=== PATIENT | female | born 1955 | race Caucasian/White ===

== ENCOUNTER 2017-07-06 18:32 | Inpatient (IN) ==
[2017-07-06 19:26] LABS: Apearance,Urine Slightly Hazy (Clear); Bilirubin,Urine Negative (Negative); Blood, Urine Negative (Negative); Glucose,Urine (UA) Negative (Negative); Ketones,Urine 5 mg/dL (Negative); Mucus,Urine Occasional /LPF (Occasional); Nitrite,Urine Negative (Negative); Protein,Urine Negative; RBC,Urine 2 /HPF (0-4); Urine Color Yellow (Yellow); Urine Specific Gravity 1.008 (1.001-1.035); Urine Urobilinogen < 2.0 EU/DL (0.2-1.0); WBC,Urine <1 /HPF (0-6)
[2017-07-06] MEDS ORDERED: SODIUM CHLORIDE 0.9% 500 ML IV STA (19:29)
[2017-07-06] MEDS ORDERED: ALUM/MAG/SIMETH/LIDO VISC 1:1 30 ML BOTTLE PO STA (19:29)
[2017-07-06] MEDS ORDERED: ONDANSETRON 4 MG/2 ML VIAL IV STA (19:29)
[2017-07-06] MEDS ORDERED: ONDANSETRON 4 MG/2 ML VIAL ONE (20:01)
[2017-07-06] MEDS ORDERED: ALUM/MAG/SIMETH/LIDO VISC 1:1 30 ML BOTTLE PO ONE (20:01)
[2017-07-06 20:15] LABS: Alanine Aminotransferase 21 U/L (13-56); Albumin 3.5 G/DL (3.4-5.0); Alkaline Phosphatase 104 U/L (45-117); Amylase 35 U/L (25-115); Aspartate Amino Transferase 16 U/L (0-37); Blood Urea Nitrogen 5 MG/DL (7-18); Calcium 8.5 MG/DL (8.5-10.1); Glucose 130 MG/DL (74-106); Osmolality,Calculated 232.8 MOS/KG (273-304); Total Protein 6.5 G/DL (6.4-8.3); Troponin I Only < 0.015 NG/ML (0.00-0.045)
[2017-07-06 20:18] LABS: Basophils % 0.1 % (0.0-0.8); Eosinophils # 0.1 10*3/uL (0.0-0.87); Eosinophils % 0.6 % (0.00-10.9); Hematocrit 32.8 VOL% (35.7-47.0); Hemoglobin 12.5 GM/DL (12.0-16.0); Immature Granulocytes % 0.8 %; Immature Granulocytes Absolute 0.11 #; Lymphocytes # 0.9 10*3/uL (1.4-4.0); Lymphocytes % 6.4 % (21.3-54.2); Mean Corpuscular HGB Conc 38.1 GM/DL (32-36); Mean Corpuscular Hemoglobin 31 PG (27-34); Mean Corpuscular Volume 81.2 FL (87-102); Mean Platelet Volume 8.7 FL (9.6-12.0); Monocytes # 1.4 10*3/uL (0.11-0.8); Monocytes % 9.8 % (1.7-12.7); Neutrophils # 11.8 10*3/uL (1.4-7.4); Neutrophils % 82.3 % (38.7-73.9); Platelet Count 296 T/CUMM (130-400); Red Blood Count 4.04 MC/CUMM (3.8-5.5); Red Cell Distribution Width 11.8 % (9.3-17.3); White Blood Count 14.3 T/CUMM (4-12)
[2017-07-06 20:19] LABS: Sodium 116 MMOL/L (136-145)
[2017-07-06 20:22] LABS: Lactic Acid 1.8 MMOL/L (0.4-2.0)
[2017-07-06] MEDS ORDERED: PANTOPRAZOLE 40 MG VIAL IV ONE ×2 (22:04→22:35)
[2017-07-07] MEDS ORDERED: GLUCAGON 1 MG VIAL IM PRN (00:14)
[2017-07-07] MEDS ORDERED: hydrALAZINE 20 MG/1 ML VIAL IV PRN (00:14)
[2017-07-07] MEDS ORDERED: DEXTROSE 50% 25 GM/50 ML VIAL IV PRN (00:14)
[2017-07-07] MEDS ORDERED: MORPHINE 4 MG/1 ML VIAL IV PRN (00:14)
[2017-07-07] MEDS: metroNIDAZOLE INJ 500 MG in PREMIX 1 EACH IV SCH ×2 (00:51→11:55)
[2017-07-07] MEDS: SODIUM CHLORIDE 0.9% 1,000 ML IV SCH ×4 (00:52→22:33)
[2017-07-07 01:58] LABS: Hemoglobin A1C 5.1 % (4.2-6.3)
[2017-07-07 02:07] LABS: Calcium 8.4 MG/DL (8.5-10.1); Osmolality,Calculated 238.2 MOS/KG (273-304); Potassium 3.8 MMOL/L (3.5-5.1)
[2017-07-07 02:12] LABS: Lithium 0.3 MMOL/L (0.6-1.2)
[2017-07-07] MEDS: CIPROFLOXACIN INJ 400 MG in PREMIX 1 EACH IV SCH ×2 (02:55→12:55)
[2017-07-07] MEDS: ONDANSETRON 4 MG/2 ML VIAL IV PRN (04:32)
[2017-07-07] MEDS: INSULIN REGULAR 100 UNIT/ML SUBCUT SCH ×4 (07:30→21:57)
[2017-07-07] MEDS: PANTOPRAZOLE 40 MG VIAL IV SCH (10:30)
[2017-07-07] MEDS: ENOXAPARIN 40 MG/0.4 ML SYRINGE SUBCUT SCH (10:31)
[2017-07-07] MEDS: TAMSULOSIN 0.4 MG CAPSULE PO SCH (14:15)
[2017-07-07 17:04] LABS: Calcium 8.2 MG/DL (8.5-10.1); Osmolality,Calculated 239.2 MOS/KG (273-304); Potassium 3.3 MMOL/L (3.5-5.1)
[2017-07-08] MEDS: metroNIDAZOLE INJ 500 MG in PREMIX 1 EACH IV SCH ×3 (00:18→23:37)
[2017-07-08] MEDS: CIPROFLOXACIN INJ 400 MG in PREMIX 1 EACH IV SCH ×2 (02:35→13:58)
[2017-07-08 07:08] LABS: Basophils % 0.1 % (0.0-0.8); Eosinophils % 0.3 % (0.00-10.9); Hemoglobin 11.3 GM/DL (12.0-16.0); Immature Granulocytes % 0.6 %; Immature Granulocytes Absolute 0.06 #; Lymphocytes # 0.7 10*3/uL (1.4-4.0); Lymphocytes % 6.1 % (21.3-54.2); Mean Corpuscular HGB Conc 37.7 GM/DL (32-36); Mean Corpuscular Hemoglobin 31 PG (27-34); Mean Corpuscular Volume 82.2 FL (87-102); Mean Platelet Volume 8.9 FL (9.6-12.0); Monocytes % 9.4 % (1.7-12.7); Neutrophils # 9.1 10*3/uL (1.4-7.4); Neutrophils % 83.5 % (38.7-73.9); Platelet Count 222 T/CUMM (130-400); Red Blood Count 3.65 MC/CUMM (3.8-5.5); Red Cell Distribution Width 11.8 % (9.3-17.3); White Blood Count 10.9 T/CUMM (4-12)
[2017-07-08 07:20] LABS: Hypochromasia Slight
[2017-07-08 07:24] LABS: Calcium 8.1 MG/DL (8.5-10.1); Osmolality,Calculated 240.1 MOS/KG (273-304)
[2017-07-08] MEDS: INSULIN REGULAR 100 UNIT/ML SUBCUT SCH ×4 (08:00→21:28)
[2017-07-08] MEDS: ENOXAPARIN 40 MG/0.4 ML SYRINGE SUBCUT SCH (11:15)
[2017-07-08] MEDS: PANTOPRAZOLE 40 MG VIAL IV SCH (11:15)
[2017-07-08] MEDS: TAMSULOSIN 0.4 MG CAPSULE PO SCH (11:15)
[2017-07-08] MEDS: SODIUM CHLORIDE 0.9% 1,000 ML IV SCH ×4 (11:50→23:26)
[2017-07-08] MEDS ORDERED: POTASSIUM CHLORIDE 20 MEQ TABLET PO SCH (12:00)
[2017-07-08] MEDS: POLYETHYLENE GLYCOL POWDER 17 GM PACK PO SCH ×2 (12:38→21:28)
[2017-07-08] MEDS: LACTULOSE 20 GM/30 ML UDCUP PO SCH ×2 (12:38→21:28)
[2017-07-08] MEDS: DOCUSATE SODIUM 100 MG CAPSULE PO SCH ×2 (12:39→21:27)
[2017-07-08] MEDS ORDERED: ALUMINUM/MAGNES/SIMETH MAX STR 30 ML UDCUP PO PRN (16:25)
[2017-07-08 19:58] LABS: Calcium 7.8 MG/DL (8.5-10.1); Osmolality,Calculated 229.9 MOS/KG (273-304); Potassium 2.8 MMOL/L (3.5-5.1)
[2017-07-08] MEDS ORDERED: POTASSIUM CHLORIDE 20 MEQ TABLET PO ONE (20:29)
[2017-07-08] MEDS: DULoxetine 30 MG CAPSULE PO SCH (21:27)
[2017-07-08] MEDS: LITHIUM ER 300 MG TABLET PO SCH (21:27)
[2017-07-08] MEDS: GABAPENTIN 300 MG CAPSULE PO SCH (21:28)
[2017-07-08] MEDS: ONDANSETRON 4 MG/2 ML VIAL IV PRN (23:48)
[2017-07-09] MEDS: CIPROFLOXACIN INJ 400 MG in PREMIX 1 EACH IV SCH (00:52)
[2017-07-09] MEDS: LEVOTHYROXINE 100 MCG TABLET PO SCH (06:30)
[2017-07-09 07:05] LABS: Basophils % 0.1 % (0.0-0.8); Eosinophils # 0.1 10*3/uL (0.0-0.87); Eosinophils % 0.6 % (0.00-10.9); Hematocrit 30.5 VOL% (35.7-47.0); Immature Granulocytes % 0.9 %; Immature Granulocytes Absolute 0.09 #; Lymphocytes % 9.9 % (21.3-54.2); Mean Corpuscular HGB Conc 38.7 GM/DL (32-36); Mean Corpuscular Hemoglobin 31 PG (27-34); Mean Corpuscular Volume 80.5 FL (87-102); Mean Platelet Volume 8.6 FL (9.6-12.0); Monocytes # 1.1 10*3/uL (0.11-0.8); NRBC # 0.03 10*3/uL; Neutrophils # 7.8 10*3/uL (1.4-7.4); Neutrophils % 77.5 % (38.7-73.9); Platelet Count 241 T/CUMM (130-400); Red Blood Count 3.79 MC/CUMM (3.8-5.5); Red Cell Distribution Width 11.7 % (9.3-17.3); White Blood Count 10.1 T/CUMM (4-12)
[2017-07-09 07:07] LABS: Hemoglobin 11.8 GM/DL (12.0-16.0)
[2017-07-09 07:09] LABS: Blood Urea Nitrogen < 1 MG/DL (7-18); Calcium 8.3 MG/DL (8.5-10.1); Glucose 114 MG/DL (74-106); Osmolality,Calculated 229.3 MOS/KG (273-304); Potassium 3.2 MMOL/L (3.5-5.1)
[2017-07-09] MEDS: INSULIN REGULAR 100 UNIT/ML SUBCUT SCH ×4 (07:30→21:36)
[2017-07-09 08:15] LABS: Sodium 115 MMOL/L (136-145)
[2017-07-09] MEDS ORDERED: MAGNESIUM OXIDE 400 MG TABLET PO SCH (09:00)
[2017-07-09] MEDS: POTASSIUM CHLORIDE 20 MEQ/15 ML UDCUP PO SCH ×4 (10:26→21:35)
[2017-07-09] MEDS: LACTULOSE 20 GM/30 ML UDCUP PO SCH ×2 (10:26→21:34)
[2017-07-09] MEDS: DULoxetine 30 MG CAPSULE PO SCH (10:27)
[2017-07-09] MEDS: ENOXAPARIN 40 MG/0.4 ML SYRINGE SUBCUT SCH (10:27)
[2017-07-09] MEDS: MAGNESIUM OXIDE 400 MG TABLET PO SCH ×2 (10:28→21:36)
[2017-07-09] MEDS: PANTOPRAZOLE 40 MG TABLET PO SCH (10:28)
[2017-07-09] MEDS: TAMSULOSIN 0.4 MG CAPSULE PO SCH (10:28)
[2017-07-09] MEDS: GABAPENTIN 300 MG CAPSULE PO SCH ×3 (10:28→21:35)
[2017-07-09] MEDS: DOCUSATE SODIUM 100 MG CAPSULE PO SCH ×2 (10:29→21:36)
[2017-07-09] MEDS: POLYETHYLENE GLYCOL POWDER 17 GM PACK PO SCH ×2 (10:29→21:35)
[2017-07-09] MEDS: LITHIUM ER 300 MG TABLET PO SCH ×2 (10:30→21:35)
[2017-07-09] MEDS: SODIUM CHLORIDE/POTASSIUM CHLORIDE TABLET PO SCH (21:35)
[2017-07-10] MEDS: LEVOTHYROXINE 100 MCG TABLET PO SCH (06:26)
[2017-07-10 07:08] LABS: Blood Urea Nitrogen < 1 MG/DL (7-18); Calcium 8.2 MG/DL (8.5-10.1); Glucose 94 MG/DL (74-106); Potassium 4.2 MMOL/L (3.5-5.1)
[2017-07-10 07:41] LABS: Sodium 117 MMOL/L (136-145)
[2017-07-10] MEDS: INSULIN REGULAR 100 UNIT/ML SUBCUT SCH ×4 (07:41→20:30)
[2017-07-10] MEDS: GABAPENTIN 300 MG CAPSULE PO SCH ×3 (08:41→20:38)
[2017-07-10] MEDS: PANTOPRAZOLE 40 MG TABLET PO SCH (08:41)
[2017-07-10] MEDS: DOCUSATE SODIUM 100 MG CAPSULE PO SCH ×2 (08:41→20:37)
[2017-07-10] MEDS: MAGNESIUM OXIDE 400 MG TABLET PO SCH ×2 (08:41→20:37)
[2017-07-10] MEDS: TAMSULOSIN 0.4 MG CAPSULE PO SCH (08:41)
[2017-07-10] MEDS: SODIUM CHLORIDE/POTASSIUM CHLORIDE TABLET PO SCH ×2 (08:41→15:27)
[2017-07-10] MEDS: ENOXAPARIN 40 MG/0.4 ML SYRINGE SUBCUT SCH (08:41)
[2017-07-10] MEDS: POLYETHYLENE GLYCOL POWDER 17 GM PACK PO SCH ×2 (08:42→20:39)
[2017-07-10] MEDS: LACTULOSE 20 GM/30 ML UDCUP PO SCH ×2 (08:42→20:38)
[2017-07-10] MEDS: LITHIUM ER 300 MG TABLET PO SCH ×2 (08:47→20:37)
[2017-07-10] MEDS: SODIUM CHLORIDE 3% INJ 500 ML IV SCH (22:12)
[2017-07-11 03:59] LABS: Calcium 8.2 MG/DL (8.5-10.1); Osmolality,Calculated 234.5 MOS/KG (273-304); Potassium 4.1 MMOL/L (3.5-5.1)
[2017-07-11] MEDS: LEVOTHYROXINE 100 MCG TABLET PO SCH (06:27)
[2017-07-11] MEDS: POLYETHYLENE GLYCOL POWDER 17 GM PACK PO SCH ×3 (10:16→21:29)
[2017-07-11] MEDS: GABAPENTIN 300 MG CAPSULE PO SCH ×3 (10:16→21:26)
[2017-07-11] MEDS: PANTOPRAZOLE 40 MG TABLET PO SCH (10:16)
[2017-07-11] MEDS: TAMSULOSIN 0.4 MG CAPSULE PO SCH (10:16)
[2017-07-11] MEDS: DOCUSATE SODIUM 100 MG CAPSULE PO SCH ×2 (10:17→21:22)
[2017-07-11] MEDS: LACTULOSE 20 GM/30 ML UDCUP PO SCH ×2 (10:18→21:22)
[2017-07-11] MEDS: ENOXAPARIN 40 MG/0.4 ML SYRINGE SUBCUT SCH (10:18)
[2017-07-11] MEDS: SODIUM CHLORIDE 3% INJ 500 ML IV SCH (10:19)
[2017-07-11] MEDS: INSULIN REGULAR 100 UNIT/ML SUBCUT SCH ×4 (10:25→21:23)
[2017-07-11] MEDS: LITHIUM ER 300 MG TABLET PO SCH ×2 (10:26→21:26)
[2017-07-11] MEDS: MAGNESIUM OXIDE 400 MG TABLET PO SCH ×2 (10:28→21:26)
[2017-07-12] MEDS: SODIUM CHLORIDE 3% INJ 500 ML IV SCH (01:26)
[2017-07-12] MEDS: LEVOTHYROXINE 100 MCG TABLET PO SCH (06:10)
[2017-07-12 06:12] LABS: Basophils % 0.3 % (0.0-0.8); Eosinophils # 0.1 10*3/uL (0.0-0.87); Eosinophils % 1.4 % (0.00-10.9); Hematocrit 34.9 VOL% (35.7-47.0); Hemoglobin 12.8 GM/DL (12.0-16.0); Immature Granulocytes % 0.6 %; Immature Granulocytes Absolute 0.05 #; Lymphocytes # 1.2 10*3/uL (1.4-4.0); Lymphocytes % 13.6 % (21.3-54.2); Mean Corpuscular HGB Conc 36.7 GM/DL (32-36); Mean Corpuscular Hemoglobin 31 PG (27-34); Mean Corpuscular Volume 84.5 FL (87-102); Mean Platelet Volume 8.6 FL (9.6-12.0); Monocytes # 0.7 10*3/uL (0.11-0.8); Monocytes % 7.6 % (1.7-12.7); Neutrophils # 6.7 10*3/uL (1.4-7.4); Neutrophils % 76.5 % (38.7-73.9); Platelet Count 272 T/CUMM (130-400); Red Blood Count 4.13 MC/CUMM (3.8-5.5); Red Cell Distribution Width 12.5 % (9.3-17.3); White Blood Count 8.7 T/CUMM (4-12)
[2017-07-12 06:27] LABS: Calcium 8.9 MG/DL (8.5-10.1); Osmolality,Calculated 250.2 MOS/KG (273-304); Potassium 3.8 MMOL/L (3.5-5.1)
[2017-07-12] MEDS: INSULIN REGULAR 100 UNIT/ML SUBCUT SCH ×4 (08:56→21:30)
[2017-07-12] MEDS: DOCUSATE SODIUM 100 MG CAPSULE PO SCH ×2 (08:57→21:30)
[2017-07-12] MEDS: PANTOPRAZOLE 40 MG TABLET PO SCH (08:57)
[2017-07-12] MEDS: LITHIUM ER 300 MG TABLET PO SCH ×2 (08:57→21:30)
[2017-07-12] MEDS: MAGNESIUM OXIDE 400 MG TABLET PO SCH ×2 (08:58→21:30)
[2017-07-12] MEDS: LACTULOSE 20 GM/30 ML UDCUP PO SCH ×2 (08:58→21:29)
[2017-07-12] MEDS: GABAPENTIN 300 MG CAPSULE PO SCH ×3 (08:58→21:30)
[2017-07-12] MEDS: ENOXAPARIN 40 MG/0.4 ML SYRINGE SUBCUT SCH (08:58)
[2017-07-12] MEDS: POLYETHYLENE GLYCOL POWDER 17 GM PACK PO SCH ×2 (08:58→21:30)
[2017-07-12] MEDS: TAMSULOSIN 0.4 MG CAPSULE PO SCH (08:58)
[2017-07-12] MEDS: SODIUM BICARBONATE 650 MG TABLET PO SCH ×2 (15:09→21:30)
[2017-07-13 05:22] LABS: Calcium 9.2 MG/DL (8.5-10.1); Osmolality,Calculated 262.4 MOS/KG (273-304); Potassium 4.3 MMOL/L (3.5-5.1)
[2017-07-13] MEDS: LEVOTHYROXINE 100 MCG TABLET PO SCH (06:20)
[2017-07-13] MEDS: DOCUSATE SODIUM 100 MG CAPSULE PO SCH ×3 (11:03→21:17)
[2017-07-13] MEDS: LITHIUM ER 300 MG TABLET PO SCH ×2 (11:03→11:36)
[2017-07-13] MEDS: TAMSULOSIN 0.4 MG CAPSULE PO SCH ×2 (11:03→11:38)
[2017-07-13] MEDS: LACTULOSE 20 GM/30 ML UDCUP PO SCH ×3 (11:03→21:17)
[2017-07-13] MEDS: POLYETHYLENE GLYCOL POWDER 17 GM PACK PO SCH ×3 (11:04→21:17)
[2017-07-13] MEDS: MAGNESIUM OXIDE 400 MG TABLET PO SCH ×3 (11:04→21:17)
[2017-07-13] MEDS: ENOXAPARIN 40 MG/0.4 ML SYRINGE SUBCUT SCH (11:04)
[2017-07-13] MEDS: PANTOPRAZOLE 40 MG TABLET PO SCH ×2 (11:06→11:37)
[2017-07-13] MEDS: SODIUM BICARBONATE 650 MG TABLET PO SCH ×4 (11:06→21:17)
[2017-07-13] MEDS: GABAPENTIN 300 MG CAPSULE PO SCH ×2 (11:06→11:37)
[2017-07-13] MEDS: INSULIN REGULAR 100 UNIT/ML SUBCUT SCH ×4 (11:32→21:18)
[2017-07-13] MEDS ORDERED: ZIPRASIDONE 20 MG/1 ML VIAL IM ONE (14:36)
[2017-07-13] MEDS: SODIUM CHLORIDE 0.9% 1,000 ML IV SCH (17:04)
[2017-07-14 05:38] LABS: Basophils # 0.1 10*3/uL (0.0-0.2); Basophils % 0.5 % (0.0-0.8); Eosinophils # 0.1 10*3/uL (0.0-0.87); Eosinophils % 0.8 % (0.00-10.9); Hematocrit 32.8 VOL% (35.7-47.0); Hemoglobin 11.1 GM/DL (12.0-16.0); Immature Granulocytes % 0.6 %; Immature Granulocytes Absolute 0.07 #; Lymphocytes # 1.2 10*3/uL (1.4-4.0); Lymphocytes % 10.4 % (21.3-54.2); Mean Corpuscular HGB Conc 33.8 GM/DL (32-36); Mean Corpuscular Hemoglobin 31 PG (27-34); Mean Corpuscular Volume 90.9 FL (87-102); Mean Platelet Volume 8.3 FL (9.6-12.0); Monocytes # 0.7 10*3/uL (0.11-0.8); Neutrophils # 9.8 10*3/uL (1.4-7.4); Neutrophils % 81.7 % (38.7-73.9); Platelet Count 274 T/CUMM (130-400); Red Blood Count 3.61 MC/CUMM (3.8-5.5); Red Cell Distribution Width 12.8 % (9.3-17.3)
[2017-07-14 06:12] LABS: Albumin 2.6 G/DL (3.4-5.0); Bilirubin,Total 1.5 MG/DL (0.2-1.0); Calcium 8.5 MG/DL (8.5-10.1); Osmolality,Calculated 270.8 MOS/KG (273-304); Potassium 4.2 MMOL/L (3.5-5.1); Total Protein 5.1 G/DL (6.4-8.3)
[2017-07-14] MEDS: SODIUM CHLORIDE 0.9% 1,000 ML IV SCH ×3 (06:56→18:12)
[2017-07-14] MEDS: LEVOTHYROXINE 100 MCG TABLET PO SCH (07:22)
[2017-07-14] MEDS: DOCUSATE SODIUM 100 MG CAPSULE PO SCH ×3 (09:03→22:06)
[2017-07-14] MEDS: TAMSULOSIN 0.4 MG CAPSULE PO SCH (09:03)
[2017-07-14] MEDS: LACTULOSE 20 GM/30 ML UDCUP PO SCH ×3 (09:03→22:05)
[2017-07-14] MEDS: PANTOPRAZOLE 40 MG TABLET PO SCH (09:03)
[2017-07-14] MEDS: MAGNESIUM OXIDE 400 MG TABLET PO SCH ×3 (09:03→22:07)
[2017-07-14] MEDS: ENOXAPARIN 40 MG/0.4 ML SYRINGE SUBCUT SCH (09:03)
[2017-07-14] MEDS: INSULIN REGULAR 100 UNIT/ML SUBCUT SCH ×4 (09:40→22:01)
[2017-07-14] MEDS ORDERED: ZIPRASIDONE 20 MG/1 ML VIAL IM ONE (13:27)
[2017-07-15] MEDS: MAGNESIUM OXIDE 400 MG TABLET PO SCH ×2 (00:10→10:18)
[2017-07-15] MEDS: LACTULOSE 20 GM/30 ML UDCUP PO SCH ×2 (00:10→10:18)
[2017-07-15] MEDS: DOCUSATE SODIUM 100 MG CAPSULE PO SCH ×2 (00:10→10:18)
[2017-07-15] MEDS: LEVOTHYROXINE 100 MCG TABLET PO SCH (06:23)
[2017-07-15 06:34] LABS: Apearance,Urine CLOUDY (Clear); Bacteria,Urine Few /HPF (Few); Bilirubin,Urine Negative (Negative); Blood, Urine Moderate mg/dL (Negative); Glucose,Urine (UA) Negative (Negative); Ketones,Urine 5 mg/dL (Negative); Nitrite,Urine Positive (Negative); Protein,Urine 30 MG/DL; RBC,Urine 558 /HPF (0-4); Urine Color Amber (Yellow); Urine Specific Gravity 1.005 (1.001-1.035); Urine Urobilinogen < 2.0 EU/DL (0.2-1.0); WBC,Urine 5025 /HPF (0-6)
[2017-07-15] MEDS: SODIUM CHLORIDE 0.9% 1,000 ML IV SCH ×2 (06:47→12:35)
[2017-07-15] MEDS: INSULIN REGULAR 100 UNIT/ML SUBCUT SCH ×2 (08:00→12:00)
[2017-07-15] MEDS ORDERED: LITHIUM ER 300 MG TABLET PO SCH (09:00)
[2017-07-15] MEDS ORDERED: LEVOFLOXACIN INJ 750 MG in PREMIX 1 EACH IV SCH (09:00)
[2017-07-15] MEDS: TAMSULOSIN 0.4 MG CAPSULE PO SCH (10:18)
[2017-07-15] MEDS: PANTOPRAZOLE 40 MG TABLET PO SCH (10:19)
[2017-07-15] MEDS: ENOXAPARIN 40 MG/0.4 ML SYRINGE SUBCUT SCH (10:19)
[2017-07-15] MEDS ORDERED: METOPROLOL TARTRATE 50 MG TABLET PO ONE (11:32)
[2017-07-15] MEDS ORDERED: METOPROLOL TARTRATE 25 MG TABLET ONE (11:35)
[2017-07-15 15:05] VITALS: BP 143/76
== END 2017-07-15 16:58 | disposition home or self-care (01) | DRG 641 ==
LOC: N.ED 18:32 → N.EDINP 22:03 → SUATTDRO 22:03 → N.5E 22:26 → N.TELES 07-10 21:50
PROVIDERS: ADMIT Hospitalist; ATTEND Internal Medicine

== ENCOUNTER 2017-10-05 14:56 | Inpatient (IN) ==
[2017-10-07 15:48] VITALS: BP 143/83
== END 2017-10-07 18:26 | disposition home or self-care (01) | DRG 640 ==
LOC: N.ED 14:56 → N.EDINP 18:18 → N.ICU 19:48 → N.4E 10-06 15:33